=== PATIENT | female | born 1955 | race Caucasian/White ===

== ENCOUNTER 2017-05-04 13:26 | Inpatient (IN) | payer OTHER ==
[~2017-05-04] VITALS: Ht 182.9 cm; Wt 178.9 kg
[~2017-05-04 13:26] MED LIST: AMLO10TA2 PO; BUPR150T11; CYCL10TA2 PO; DOCU-109 PO; GABA-585 PO; HYDR-2758 PO; HYDR-971 PO; LISI1TAB7; LISI1TAB7 PO; METH4TAB PO; PRED20TA PO; SERT50TA8
[2017-05-04] MEDS ORDERED: IV NORMAL SALINE 1000ML BAG 1,000 ML IV SCH (14:51)
[2017-05-04] MEDS ORDERED: ASPIRIN CHEWABLE 81 MG TABLET. PO ONE (15:00)
[2017-05-04 15:04] LABS: BASO # 0.1 x10^3/uL (0.0-0.2); BASO % 1 % (0-3); EOS % 4 % (0-3); HEMATOCRIT 43.3 % (36.0-47.0); HEMOGLOBIN 14.3 g/dL (12.0-15.5); LYMPH % 21 % (24-48); MEAN CORPUSCULAR HEMOGLOBIN 32 pg (25-35); MEAN CORPUSCULAR HGB CONC 33 g/dL (31-37); MEAN CORPUSCULAR VOLUME 97 fL (79-100); MONO % 5 % (0-9); NEUT % 69 % (31-73); PLATELET COUNT 229 x10^3/uL (140-400); RED BLOOD COUNT 4.48 x10^6/uL (3.50-5.40); RED CELL DISTRIBUTION WIDTH 13.1 % (11.5-14.5); WHITE BLOOD COUNT 9.3 x10^3/uL (4.0-11.0)
--- NOTE | 2017-05-04 15:04 | EKG ---
[facility] [address] [place] [address] Test Date: 2017-05-04 Test Time: 13:36:22 Pat Name: TYRELL SPANGLER Department: Room: Gender: F Healthcare Corporate Account Director: DEEJAY : 1955 Requested By: JOSIAS REYES Order Number: [id number] Reading MD: Bryan Heath Measurements Intervals [place] Rate: 74 P: 6 [place]: 140 QRS: -172 QRSD: 96 T: 141 QT: 418 QTc: 470 Interpretive Statements SINUS RHYTHM VENTRICULAR PREMATURE COMPLEX(ES) ATRIAL PREMATURE COMPLEX(ES) ABNORMAL RIGHT SUPERIOR AXIS DEVIATION QRS(T) CONTOUR ABNORMALITY CONSISTENT WITH HIGH LATERAL INFARCT AGE UNDETERMINED ABNORMAL ECG RI6.01 No previous ECG available for comparison Electronically Signed On 05-04-2017 17:55:34 MACHINIST MECHANIC by Bryan Heath
[2017-05-04 15:14] LABS: BILIRUBIN,URINE NEGATIVE (NEG); GLUCOSE,URINE NEGATIVE (NEG); NITRITE,URINE NEGATIVE (NEG); PROTEIN,URINE NEGATIVE (NEG-TRACE)
[2017-05-04 15:15] LABS: CALCIUM 8.5 mg/dL (8.5-10.1); CREATININE 0.8 mg/dL (0.6-1.0); GFR 73.4; POTASSIUM 3.5 mmol/L (3.5-5.1)
[2017-05-04 15:21] LABS: ALBUMIN 3.6 g/dL (3.4-5.0); ALBUMIN/GLOBULIN RATIO 0.9 (1.0-1.7); TOTAL BILIRUBIN 0.3 mg/dL (0.2-1.0); TOTAL PROTEIN 7.7 g/dL (6.4-8.2)
[2017-05-04 15:29] LABS: BACTERIA,URINE MODERATE /HPF (0-FEW); RBC,URINE 0 /HPF (0-2); SQUAMOUS EPITHELIAL CELL,UR MOD /LPF; WBC,URINE OCC /HPF (0-4)
--- NOTE | 2017-05-04 15:33 | RAD ---
Portable chest, 05/04/2017: History: Chest pain, dizziness Comparison is made to a study from 09/22/2011. The heart size and pulmonary vascularity are within normal limits. There are prominent epicardial fat pads. No acute infiltrate is seen. There is no evidence of pleural fluid. IMPRESSION: No acute cardiopulmonary abnormality is detected.
[2017-05-04] MEDS: IV NORMAL SALINE 1000ML BAG 1,000 ML IV SCH (16:00)
[2017-05-04] MEDS ORDERED: fentaNYL PF VIAL 100 MCG/2 ML VIAL IV PRN (16:00)
[2017-05-04] MEDS ORDERED: ACETAMINOPHEN 325 MG TABLET. PO PRN (16:00)
[2017-05-04] MEDS ORDERED: ONDANSETRON PF 4 MG/2 ML VIAL. IV PRN (16:00)
--- NOTE | 2017-05-04 16:05 | RAD ---
CT of the head without contrast, 05/04/2017: History: Dizziness, hypertension The ventricles are within normal limits in size. There is no shift of the midline structures. There is no evidence of acute intracranial hemorrhage or mass effect. IMPRESSION: No acute intracranial abnormality is detected. PQRS Compliance Statement: One or more of the following individualized dose reduction techniques were utilized for this examination: 1. Automated exposure control 2. Adjustment of the mA and/or kV according to patient size 3. Use of iterative reconstruction technique
--- NOTE | 2017-05-04 16:22 | PHYS DOC ---
Past Medical History Past Medical History: COPD, Depression, Hypertension, Sciatica Past Surgical History: Hysterectomy, Tonsillectomy, Other Additional Past Surgical Histo: (r) arm repair, L knee, back, lasik Alcohol Use: None Drug Use: None Adult General Chief Complaint Chief Complaint: DIZZY/LIGHT HEADED HPI HPI Patient is a 61 year old female who presents with complaint of dizziness. The patient states that she has been having symptoms over the past week. Patient states that she has not noticed any triggers for her dizzy spells. The patient describes the spells as feeling like she is going to fall back and passed out. Patient states that she also has noticed pain to the left side of her chest and jaw. Patient states that these episodes last about 30 minutes and resolve spontaneously. Patient does admit to associated shortness of breath and diaphoresis with these episodes. Patient has history of hypertension and family history of coronary artery disease. Patient also has long-standing history of tobacco use. Patient denies any history of abnormal cardiac workups. Patient states that she has had a stress test but states that it is been more than 2 years ago. The patient states that she is concerned with the symptoms as they seem to be happening without warning and came to the emergency department for evaluation. Review of Systems Review of Systems Constitutional: Diaphoresis, denies fever or chills [] Eyes: Denies change in visual acuity, redness, or eye pain [] HENT: Denies nasal congestion or sore throat [] Respiratory: Shortness of breath[] Cardiovascular: Chest pain, near-syncope[] GI: Denies abdominal pain, nausea, vomiting, bloody stools or diarrhea [] : Denies dysuria or hematuria [] Musculoskeletal: Denies back pain or joint pain [] Integument: Denies rash or skin lesions [] Neurologic: Denies headache, focal weakness or sensory changes [] All other systems were reviewed and found to be within normal limits, except as documented in this note. Current Medications Current Medications Current Medications Medications (Trade) Dose Ordered Sig/Alfredo Start Time Stop Time Status Last Admin Dose Admin Acetaminophen (Tylenol) 650 mg PRN Q4HRS PRN 05/04/17 16:00 05/05/17 15:59 Aspirin (Children'S Aspirin) 324 mg 1X ONCE 05/04/17 15:00 05/04/17 15:01 DC 05/04/17 15:08 324 MG Fentanyl Citrate (Fentanyl 2ml Vial) 50 mcg PRN Q2HR PRN 05/04/17 16:00 05/05/17 15:59 Ondansetron HCl (Zofran) 4 mg PRN Q8HRS PRN 05/04/17 16:00 05/05/17 15:59 Sodium Chloride 1,000 ml @ 125 mls/hr Q8H 05/04/17 16:00 05/05/17 15:59 Allergies Allergies Allergies Coded Allergies Type Severity Reaction Last Updated Verified No Known Drug Allergies 09/30/14 No Physical Exam Physical Exam Constitutional: Alert, obese, afebrile, vital signs stable. [] HENT: Normocephalic, atraumatic, bilateral external ears normal, oropharynx moist, no oral exudates, nose normal. [] Eyes: PERRLA, EOMI, conjunctiva normal, no discharge. [] Neck: Normal range of motion, no tenderness, supple, no stridor. [] Cardiovascular:Heart rate regular rhythm, no murmur [] Lungs & Thorax: Bilateral breath sounds clear to auscultation [] Abdomen: Bowel sounds normal, soft, no tenderness, no masses, no pulsatile masses. [] Skin: Warm, dry, no erythema, no rash. [] Back: No tenderness, no CVA tenderness. [] Extremities: No tenderness, no cyanosis, no clubbing, ROM intact, no edema. [] Neurologic: Alert and oriented X 3, normal motor function, normal sensory function, no focal deficits noted. [] Current Patient Data Vital Signs Vital Signs Date Time Temp Pulse Resp B/P (MAP) Pulse Ox O2 Delivery O2 Flow Rate FiO2 05/04/17 13:27 98.7 73 22 183/96 (125) 96 Room Air 98.7 Lab Values Laboratory Tests Test 05/04/17 13:12 05/04/17 15:00 White Blood Count 9.3 x10^3/uL (4.0-11.0) Red Blood Count 4.48 x10^6/uL (3.50-5.40) Hemoglobin 14.3 g/dL (12.0-15.5) Hematocrit 43.3 % (36.0-47.0) Mean Corpuscular Volume 97 fL (79-100) Mean Corpuscular Hemoglobin 32 pg (25-35) Mean Corpuscular Hemoglobin Concent 33 g/dL (31-37) Red Cell Distribution Width 13.1 % (11.5-14.5) Platelet Count 229 x10^3/uL (140-400) Neutrophils (%) (Auto) 69 % (31-73) Lymphocytes (%) (Auto) 21 % (24-48) L Monocytes (%) (Auto) 5 % (0-9) Eosinophils (%) (Auto) 4 % (0-3) H Basophils (%) (Auto) 1 % (0-3) Neutrophils # (Auto) 6.5 x10^3uL (1.8-7.7) Lymphocytes # (Auto) 2.0 x10^3/uL (1.0-4.8) Monocytes # (Auto) 0.5 x10^3/uL (0.0-1.1) Eosinophils # (Auto) 0.3 x10^3/uL (0.0-0.7) Basophils # (Auto) 0.1 x10^3/uL (0.0-0.2) Sodium Level 137 mmol/L (136-145) Potassium Level 3.5 mmol/L (3.5-5.1) Chloride Level 103 mmol/L (98-107) Carbon Dioxide Level 26 mmol/L (21-32) Anion Gap 8 (6-14) Blood Urea Nitrogen 14 mg/dL (7-20) Creatinine 0.8 mg/dL (0.6-1.0) Estimated GFR (Cockcroft-Gault) 73.4 BUN/Creatinine Ratio 18 (6-20) Glucose Level 156 mg/dL (70-99) H Calcium Level 8.5 mg/dL (8.5-10.1) Magnesium Level 2.0 mg/dL (1.8-2.4) Total Bilirubin 0.3 mg/dL (0.2-1.0) Aspartate Amino Transferase (AST) 16 U/L (15-37) Alanine Aminotransferase (ALT) 19 U/L (14-59) Alkaline Phosphatase 69 U/L (46-116) Creatine Kinase 124 U/L (26-192) Creatine Kinase MB (Mass) 2.0 ng/mL (0.0-3.6) Creatine Kinase MB Relative Index 1.6 % (0-4) Troponin I Quantitative < 0.017 ng/mL (0.000-0.055) KK-Ixa-C-Type Natriuretic Peptide 131 pg/mL (0-124) H Total Protein 7.7 g/dL (6.4-8.2) Albumin 3.6 g/dL (3.4-5.0) Albumin/Globulin Ratio 0.9 (1.0-1.7) L Urine Collection Type Unknown Urine Color Yellow Urine Clarity Cloudy Urine pH 6.0 Urine Specific [place] 1.015 Urine Protein Negative mg/dL (NEG-TRACE) Urine Glucose (UA) Negative mg/dL (NEG) Urine Ketones (Stick) Negative mg/dL (NEG) Urine Blood Negative (NEG) Urine Nitrite Negative (NEG) Urine Bilirubin Negative (NEG) Urine Urobilinogen Dipstick 1.0 mg/dL (0.2 mg/dL) Urine Leukocyte Esterase Negative (NEG) Urine RBC 0 /HPF (0-2) Urine WBC Occ /HPF (0-4) Urine Squamous Epithelial Cells Mod /LPF Urine Bacteria Moderate /HPF (0-FEW) Urine Mucus Slight /LPF Laboratory Tests 05/04/17 13:12 Laboratory Tests 05/04/17 13:12 EKG EKG Interpreted by me: Heart rate 74, sinus rhythm, occasional PVCs, no acute ST/T- wave abnormalities present[] Radiology/Procedures Radiology/Procedures [facility] [address] [place] [address] IMAGING REPORT Signed PATIENT: TYRELL SPANGLER ACCOUNT: [id number] : 1955 LOCATION: ER AGE: 61 SEX: F EXAM STATUS: REG ER ORD. PHYSICIAN: JOSIAS REYES MD REASON: dizziness, chest pain PROCEDURE: PORTABLE CHEST 1V Portable chest, 05/04/2017: History: Chest pain, dizziness Comparison is made to a study from 09/22/2011. The heart size and pulmonary vascularity are within normal limits. There are prominent epicardial fat pads. No acute infiltrate is seen. There is no evidence of pleural fluid. IMPRESSION: No acute cardiopulmonary abnormality is detected. DICTATED and SIGNED BY: RADHA ARIZMENDI MD DATE: 05/04/17 1527 CC: JOSIAS REYES MD; RAMÓN DOMINGUEZ Jr, MD ~ [facility] [address] [place] [address] IMAGING REPORT Signed PATIENT: TYRELL SPANGLER ACCOUNT: [id number] : 1955 LOCATION: ER AGE: 61 SEX: F EXAM STATUS: REG ER ORD. PHYSICIAN: JOSIAS REYES MD REASON: dizziness for 6 days PROCEDURE: CT HEAD WO CONTRAST CT of the head without contrast, 05/04/2017: History: Dizziness, hypertension The ventricles are within normal limits in size. There is no shift of the midline structures. There is no evidence of acute intracranial hemorrhage or mass effect. IMPRESSION: No acute intracranial abnormality is detected. [facility] Compliance Statement: One or more of the following individualized dose reduction techniques were utilized for this examination: 1. Automated exposure control 2. Adjustment of the mA and/or kV according to patient size 3. Use of iterative reconstruction technique DICTATED and SIGNED BY: RADHA ARIZMENDI MD DATE: 05/04/171558 CC: JOSIAS REYES MD; RAMÓN DOMINGUEZ Jr, MD ~ [] Course & Med Decision Making Course & Med Decision Making Pertinent Labs and Imaging studies reviewed. (See chart for details) The patient's HEART score is 6. Patient's initial troponin negative. The patient has a concerning story for acute coronary syndrome. The patient will require admission to the hospital for full evaluation and rule out of myocardial infarction. I spoke with Dr. Sam who accepted care of patient in hospital. A consult was placed to Dr. Marlow of cardiology follow patient in hospital. Dragon Disclaimer Dragon Disclaimer This electronic medical record was generated, in whole or in part, using a voice recognition dictation system. Departure Departure Impression: Primary Impression: Acute coronary syndrome Additional Impressions: Essential hypertension Family history of coronary artery disease Tobacco use Disposition: ADMITTED INPATIENT Admitting Physician: Evon Sam Condition: STABLE Referrals: RAMÓN DOMINGUEZ Jr, MD (PCP) Problem Qualifiers JOSIAS REYES MD May 04, 2017 16:22
--- NOTE | 2017-05-04 18:21 | PDOC1 ---
History and Physical Date of Admission Date of Admission DATE: 05/04/17 TIME: 18:17 Identification/Chief Complaint Chief Complaint jaw pain, presyncopal sensations Problems: Source Source: Chart review, Patient History of Present Illness History of Present Illness Ms. Peck, is a 61 year old female who presents with complaint of dizziness with intermittent symptoms over the past week. Patient states that she has not noticed any triggers for her dizzy spells. episodes for 30 minutes at times for the past week. She is often at work, seated, working on the computer, and then feels suddenly dizzy, and like some force is pulling her back by her head. Then today, she felt like she was going to fall back and passed out. She then had jaw pain and neck pain bilaterally. Cardiac stress test done 4 or more years ago here. Past Medical History Cardiovascular: HTN Heme/Onc: No pertinent hx Hepatobiliary: No pertinent hx Psych: Anxiety, Addictions Rheumatologic: No pertinent hx Infectious disease: No pertinent hx Endocrine: Other (obese) Dermatology: No pertinent hx Family History Family History: Coronary Artery Disease Family History: Parent Social History Smoke: <1 pack per day ALCOHOL: none Drugs: None Current Problem List Problem List Problems Medical Problems: (1) Essential hypertension Status: Acute (2) Tobacco use Status: Acute Problems: Current Medications Current Medications Current Medications Aspirin (Children'S Aspirin) 324 mg 1X ONCE PO Last administered on 15:08; Start 05/04/17 at 15:00; Stop 05/04/17 at 15:01; Status DC Sodium Chloride 1,000 ml @ 125 mls/hr Q8H IV Last administered on 05/04/17 15:07; Start 05/04/17 at 14:51; Stop 05/04/17 at 22:50 Ondansetron HCl (Zofran) 4 mg PRN Q8HRS PRN IV NAUSEA/VOMITING; Start at 16:00; Stop 05/05/17 at 15:59 Fentanyl Citrate (Fentanyl 2ml Vial) 50 mcg PRN Q2HR PRN IV PAIN; Start at 16:00; Stop 05/05/17 at 15:59 Sodium Chloride 1,000 ml @ 125 mls/hr Q8H IV ; Start 05/04/17 at 16:00; Stop 05/05/17 at 15:59 Acetaminophen (Tylenol) 650 mg PRN Q4HRS PRN PO FEVER; Start 05/04/17 at 16:00 ; Stop 05/05/17 at 15:59 Active Scripts Active Medrol (Methylprednisolone) 4 Mg Tablet 4 Tab PO UD see package instructions Lisinopril-Hctz 20-25 Mg Tab (Lisinopril/Hydrochlorothiazide) 1 Each Tablet 1 Tab PO DAILY Colace (Docusate Sodium) 100 Mg Capsule 100 Mg PO BID Hydrocodone-Apap 5-325 (Hydrocodone Bit/Acetaminophen) 1 Each Tablet 1-2 Tab PO PRN Q4HRS PRN Gabapentin 100 Mg Capsule 100 Mg PO TID Amlodipine Besylate 10 Mg Tablet 10 Mg PO DAILY Prednisone 20 Mg Tablet 40 Mg PO DAILY Cyclobenzaprine Hcl 10 Mg Tablet 1 Tab PO TID Reported Sertraline Hcl 50 Mg Tablet Bupropion Hcl Sr (Bupropion Hcl) 150 Mg Tablet.er 30 Days Allergies Allergies: Coded Allergies: No Known Drug Allergies (Unverified , 09/30/14) ROS General: YES: Fatigue, No: Chills, Night Sweats, Malaise, Appetite, Other PSYCHOLOGICAL ROS: YES: Sleep disturbances, No: Anxiety, Behavioral Disorder, Concentration difficultie, Decreased libido , Depression, Disorientation, Hallucinations, Hostility, Irritablity, Memory difficulties, Mood Swings, Obsessive thoughts, Other Eyes: No Blurry vision, No Decreased vision, No Double vision, No Dry eyes, No Excessive tearing, No Eye Pain, No Itchy Eyes, No Loss of vision, No Photophobia , No Scotomata, No Uses contacts, No Uses glasses, No Other HEENT: No: Heacaches, Visual Changes, Hearing change, Nasal congestion, Nasal discharge, Oral lesions, Sinus pain, Sore Throat, Epistaxis, Sneezing, Snoring, Tinnitus, Vertigo, Vocal changes, Other Respiratory: No: Cough, Hemoptysis, Orthopnea, Pleuritic Pain, Shortness of breath, SOB with excertion, Sputum Changes, Stridor, Tachypnea, Wheezing, Other Gastrointestinal: No Nausea, No Vomiting, No Abdominal Pain, No Diarrhea, No Constipation, No Melena, No Hematochezia, No Other Genitourinary: No Dysuria, No Frequency, No Incontinence, No Hematuria, No Retention, No Discharge, No Urgency, No Pain, No Flank Pain, No Other, No , No , No , No , No , No , No Musculoskeletal: Yes Joint Pain, Yes Joint Stiffness, No Gait Disturbance, No Joint Swelling, No Muscle Pain, No Muscular Weakness , No Pain In:, No Swelling In:, No Other Neurological: No Behavorial Changes, No Bowel/Bladder ControlChng, No Confusion , No Dizziness, No Gait Disturbance, No Headaches, No Impaired Coord/balance, No Memory Loss, No Numbness/Tingling, No Seizures, No Speech Problems, No Tremors, No Visual Changes, No Weakness, No Other Skin: No Dry Skin, No Eczema, No Hair Changes, No Lumps, No Mole Changes, No Mottling, No Nail Changes, No Pruritus, No Rash, No Skin Lesion Changes, No Other, No Acne Physical Exam General: Alert, Cooperative, mild distress HEENT: PERRLA, EOMI, Mucous membr. moist/pink Heart: S1S2, RRR, no gallops, no murmurs Abdomen: Normal bowel sounds, Soft (obese) Rectal Exam: not examined Extremities: No edema, Normal pulses, Other (right ankle in brace for foot drop ) Neuro: Normal gait, Normal speech, Sensation intact Psych/Mental Status: Mental status NL, Mood NL Vitals Vitals Vital Signs Date Time Temp Pulse Resp B/P (MAP) Pulse Ox O2 Delivery O2 Flow Rate FiO2 05/04/17 13:27 98.7 73 22 183/96 (125) 96 Room Air 98.7 Labs Labs Laboratory Tests Test 05/04/17 13:12 05/04/17 15:00 White Blood Count 9.3 x10^3/uL (4.0-11.0) Red Blood Count 4.48 x10^6/uL (3.50-5.40) Hemoglobin 14.3 g/dL (12.0-15.5) Hematocrit 43.3 % (36.0-47.0) Mean Corpuscular Volume 97 fL (79-100) Mean Corpuscular Hemoglobin 32 pg (25-35) Mean Corpuscular Hemoglobin Concent 33 g/dL (31-37) Red Cell Distribution Width 13.1 % (11.5-14.5) Platelet Count 229 x10^3/uL (140-400) Neutrophils (%) (Auto) 69 % (31-73) Lymphocytes (%) (Auto) 21 % (24-48) Monocytes (%) (Auto) 5 % (0-9) Eosinophils (%) (Auto) 4 % (0-3) Basophils (%) (Auto) 1 % (0-3) Neutrophils # (Auto) 6.5 x10^3uL (1.8-7.7) Lymphocytes # (Auto) 2.0 x10^3/uL (1.0-4.8) Monocytes # (Auto) 0.5 x10^3/uL (0.0-1.1) Eosinophils # (Auto) 0.3 x10^3/uL (0.0-0.7) Basophils # (Auto) 0.1 x10^3/uL (0.0-0.2) Sodium Level 137 mmol/L (136-145) Potassium Level 3.5 mmol/L (3.5-5.1) Chloride Level 103 mmol/L (98-107) Carbon Dioxide Level 26 mmol/L (21-32) Anion Gap 8 (6-14) Blood Urea Nitrogen 14 mg/dL (7-20) Creatinine 0.8 mg/dL (0.6-1.0) Estimated GFR (Cockcroft-Gault) 73.4 BUN/Creatinine Ratio 18 (6-20) Glucose Level 156 mg/dL (70-99) Calcium Level 8.5 mg/dL (8.5-10.1) Magnesium Level 2.0 mg/dL (1.8-2.4) Total Bilirubin 0.3 mg/dL (0.2-1.0) Aspartate Amino Transf (AST/SGOT) 16 U/L (15-37) Alanine Aminotransferase (ALT/SGPT) 19 U/L (14-59) Alkaline Phosphatase 69 U/L (46-116) Creatine Kinase 124 U/L (26-192) Creatine Kinase MB (Mass) 2.0 ng/mL (0.0-3.6) Creatine Kinase MB Relative Index 1.6 % (0-4) Troponin I Quantitative < 0.017 ng/mL (0.000-0.055) TT-Clw-N-Type Natriuretic Peptide 131 pg/mL (0-124) Total Protein 7.7 g/dL (6.4-8.2) Albumin 3.6 g/dL (3.4-5.0) Albumin/Globulin Ratio 0.9 (1.0-1.7) Urine Collection Type Unknown Urine Color Yellow Urine Clarity Cloudy Urine pH 6.0 Urine Specific [place] 1.015 Urine Protein Negative mg/dL (NEG-TRACE) Urine Glucose (UA) Negative mg/dL (NEG) Urine Ketones (Stick) Negative mg/dL (NEG) Urine Blood Negative (NEG) Urine Nitrite Negative (NEG) Urine Bilirubin Negative (NEG) Urine Urobilinogen Dipstick 1.0 mg/dL (0.2 mg/dL) Urine Leukocyte Esterase Negative (NEG) Urine RBC 0 /HPF (0-2) Urine WBC Occ /HPF (0-4) Urine Squamous Epithelial Cells Mod /LPF Urine Bacteria Moderate /HPF (0-FEW) Urine Mucus Slight /LPF Laboratory Tests Test 05/04/17 13:12 05/04/17 15:00 White Blood Count 9.3 x10^3/uL (4.0-11.0) Red Blood Count 4.48 x10^6/uL (3.50-5.40) Hemoglobin 14.3 g/dL (12.0-15.5) Hematocrit 43.3 % (36.0-47.0) Mean Corpuscular Volume 97 fL (79-100) Mean Corpuscular Hemoglobin 32 pg (25-35) Mean Corpuscular Hemoglobin Concent 33 g/dL (31-37) Red Cell Distribution Width 13.1 % (11.5-14.5) Platelet Count 229 x10^3/uL (140-400) Neutrophils (%) (Auto) 69 % (31-73) Lymphocytes (%) (Auto) 21 % (24-48) Monocytes (%) (Auto) 5 % (0-9) Eosinophils (%) (Auto) 4 % (0-3) Basophils (%) (Auto) 1 % (0-3) Neutrophils # (Auto) 6.5 x10^3uL (1.8-7.7) Lymphocytes # (Auto) 2.0 x10^3/uL (1.0-4.8) Monocytes # (Auto) 0.5 x10^3/uL (0.0-1.1) Eosinophils # (Auto) 0.3 x10^3/uL (0.0-0.7) Basophils # (Auto) 0.1 x10^3/uL (0.0-0.2) Sodium Level 137 mmol/L (136-145) Potassium Level 3.5 mmol/L (3.5-5.1) Chloride Level 103 mmol/L (98-107) Carbon Dioxide Level 26 mmol/L (21-32) Anion Gap 8 (6-14) Blood Urea Nitrogen 14 mg/dL (7-20) Creatinine 0.8 mg/dL (0.6-1.0) Estimated GFR (Cockcroft-Gault) 73.4 BUN/Creatinine Ratio 18 (6-20) Glucose Level 156 mg/dL (70-99) Calcium Level 8.5 mg/dL (8.5-10.1) Magnesium Level 2.0 mg/dL (1.8-2.4) Total Bilirubin 0.3 mg/dL (0.2-1.0) Aspartate Amino Transf (AST/SGOT) 16 U/L (15-37) Alanine Aminotransferase (ALT/SGPT) 19 U/L (14-59) Alkaline Phosphatase 69 U/L (46-116) Creatine Kinase 124 U/L (26-192) Creatine Kinase MB (Mass) 2.0 ng/mL (0.0-3.6) Creatine Kinase MB Relative Index 1.6 % (0-4) Troponin I Quantitative < 0.017 ng/mL (0.000-0.055) TQ-Ovc-C-Type Natriuretic Peptide 131 pg/mL (0-124) Total Protein 7.7 g/dL (6.4-8.2) Albumin 3.6 g/dL (3.4-5.0) Albumin/Globulin Ratio 0.9 (1.0-1.7) Urine Collection Type Unknown Urine Color Yellow Urine Clarity Cloudy Urine pH 6.0 Urine Specific [place] 1.015 Urine Protein Negative mg/dL (NEG-TRACE) Urine Glucose (UA) Negative mg/dL (NEG) Urine Ketones (Stick) Negative mg/dL (NEG) Urine Blood Negative (NEG) Urine Nitrite Negative (NEG) Urine Bilirubin Negative (NEG) Urine Urobilinogen Dipstick 1.0 mg/dL (0.2 mg/dL) Urine Leukocyte Esterase Negative (NEG) Urine RBC 0 /HPF (0-2) Urine WBC Occ /HPF (0-4) Urine Squamous Epithelial Cells Mod /LPF Urine Bacteria Moderate /HPF (0-FEW) Urine Mucus Slight /LPF VTE Prophylaxis Ordered VTE Prophylaxis Devices: No VTE Pharmacological Prophylaxi: Yes Assessment/Plan Assessment/Plan presyncope with chest pain, possible angina morbid obesity, BMI 53 tobaccoism right ankle weakness and poor mobility after achilles injury CHACORTA PAPPAS MD May 04, 2017 18:21
[2017-05-04] MEDS ORDERED: HYDROcodone/APAP 5/325MG 1 TAB TABLET PO PRN (18:30)
[2017-05-04] MEDS ORDERED: ALBUTEROL SULFATE 2.5 MG/3 ML NEBU. NEB PRN (18:30)
[2017-05-04 18:50] VITALS: BP 155/78
[2017-05-04] MEDS: IPRATRPIUM/ALBUTEROL 0.5/2.5MG 3 ML NEBU. NEB SCH (19:45)
[2017-05-04] MEDS: BUDESONIDE 0.5 MG/2 ML NEBU. NEB SCH (19:45)
[2017-05-04] MEDS ORDERED: CYCLOBENZAPRINE 10 MG TABLET. PO SCH (21:00)
[2017-05-04] MEDS ORDERED: GABAPENTIN 100 MG CAPSULE. PO SCH (21:00)
[2017-05-04] MEDS ORDERED: DOCUSATE SODIUM 100 MG CAPSULE. PO SCH (21:00)
[2017-05-04] MEDS: buPROPion SR 150 MG TABLET.SA PO SCH (21:27)
[2017-05-04 23:00] VITALS: BP 138/45
[2017-05-05 03:25] VITALS: BP 125/51
[2017-05-05 06:19] LABS: BASO # 0.1 x10^3/uL (0.0-0.2); BASO % 1 % (0-3); EOS % 4 % (0-3); HEMATOCRIT 39.4 % (36.0-47.0); HEMOGLOBIN 13.1 g/dL (12.0-15.5); LYMPH # 1.7 x10^3/uL (1.0-4.8); LYMPH % 20 % (24-48); MEAN CORPUSCULAR HEMOGLOBIN 32 pg (25-35); MEAN CORPUSCULAR HGB CONC 33 g/dL (31-37); MEAN CORPUSCULAR VOLUME 96 fL (79-100); MONO % 7 % (0-9); NEUT % 68 % (31-73); PLATELET COUNT 188 x10^3/uL (140-400); RED CELL DISTRIBUTION WIDTH 13.5 % (11.5-14.5); WHITE BLOOD COUNT 8.3 x10^3/uL (4.0-11.0)
[2017-05-05 06:58] LABS: CALCIUM 8.6 mg/dL (8.5-10.1); CREATININE 0.8 mg/dL (0.6-1.0); GFR 73.4; POTASSIUM 4.3 mmol/L (3.5-5.1)
[2017-05-05 06:59] LABS: CHOLESTEROL/HDL RATIO 5.1
[2017-05-05 07:00] VITALS: BP 151/74
[2017-05-05] MEDS: IPRATRPIUM/ALBUTEROL 0.5/2.5MG 3 ML NEBU. NEB SCH ×4 (07:17→19:55)
[2017-05-05] MEDS: BUDESONIDE 0.5 MG/2 ML NEBU. NEB SCH ×2 (07:18→19:55)
[2017-05-05] MEDS: IV NORMAL SALINE 1000ML BAG 1,000 ML IV SCH ×2 (08:00)
--- NOTE | 2017-05-05 08:28 | RAD ---
DOPPLER CAROTID BILAT Clinical Indication: dizzy, presyncope,. Procedure: Pulsed wave and color-flow duplex imaging was utilized to evaluate the extracranial carotid arteries. Comparison: None. Findings: RIGHT SIDE: Mild atherosclerotic plaque on fernandez-scale images. Distal CCA peak systolic velocity 81 cm/sec. ICA peak systolic velocity 51 cm/sec. The right ICA/CCA ratio is 0.6. Flow within the right vertebral artery and right ECA is directed antegrade. LEFT SIDE: Mild atherosclerotic plaque on fernandez-scale images. Distal CCA peak systolic velocity 67 cm/sec. ICA peak systolic velocity 66 cm/sec. The left ICA/CCA ratio is 1.0. Flow within the left vertebral artery and left ECA is directed antegrade. Carotid legend: CCA = common carotid artery ICA = internal carotid artery ECA = external carotid artery IMPRESSION: Normal peak velocity in the bilateral ICA suggesting no hemodynamically significant stenosis.
[2017-05-05 11:00] VITALS: BP 147/70
--- NOTE | 2017-05-05 11:10 | PDOC2 ---
WALLY CHACKO BLOWER ROOM ATTENDANT 05/05/17 1110: CARDIAC CONSULT DATE OF CONSULT Date of Consult DATE: 05/05/17 TIME: 10:39 REASON FOR CONSULT Reason for Consult: Chest pain REFERRING PHYSICIAN Referring Physician: Javed SOURCE Source: Chart review, Patient HISTORY OF PRESENT ILLNESS HISTORY OF PRESENT ILLNESS This is a pleasant 61 yo female admitted for complains of jaw and neck tightness and dizziness. Reports that this has been going on in the last week. Positive for diaphoresis, palpitations. She gets this dizzy spells quite frequently now but no passing out or related injuries. Her dizziness occurs even with no palpitations. Reports no nausea but notable for PECK. No wheezing and remains to continue with tobaccoism and no med coverage for her COPD. Positive for JESSICA with CPAP use. Reports no past CAD with stress test last was 5 yrs ago. No VTE, syncope, or hx of arrhythmias. No PND or orthopnea. She does use 3 tabs of aleve daily for her chronic low back pain but denies any abd pain or heartburn. PAST MEDICAL HISTORY Cardiovascular: HTN Pulmonary: COPD, Other CENTRAL NERVOUS SYSTEM: Other (No pertinent history) GI: No pertinent hx Heme/Onc: No pertinent hx Hepatobiliary: No pertinent hx Psych: Anxiety, Depression Musculoskeletal: low back pain, Osteoarthritis, Other (lumbar radiculopathy) Rheumatologic: No pertinent hx Infectious disease: No pertinent hx ENT: No pertinent hx Renal/: Urinary Incontinence Endocrine: No pertinent hx Dermatology: No pertinent hx PAST SURGICAL HISTORY Past Surgical History: Tonsillectomy, Hysterectomy SOCIAL HISTORY Smoke: <1 pack per day ALCOHOL: none Drugs: None Lives: with Family CURRENT MEDICATIONS CURRENT MEDICATIONS Current Medications Medications (Trade) Dose Ordered Sig/Alfredo Route PRN Reason Start Time Stop Time Status Last Admin Dose Admin Aspirin (Children'S Aspirin) 324 mg 1X ONCE PO 05/04/17 15:00 05/04/17 15:01 DC 05/04/17 15:08 Sodium Chloride 1,000 ml @ 125 mls/hr Q8H IV 05/04/17 14:51 05/04/17 22:50 DC 05/04/17 15:07 Bupropion HCl (Wellbutrin Sr) 150 mg BID PO 05/04/17 21:00 05/04/17 21:27 Albuterol/ Ipratropium (Duoneb) 3 ml RTQID NEB 05/04/17 20:00 05/05/17 07:17 Budesonide (Pulmicort) 0.5 mg RTBID [facility] 05/04/17 20:00 05/05/17 07:18 ALLERGIES ALLERGIES: Coded Allergies: No Known Drug Allergies (Unverified , 09/30/14) ROS Review of System 14 point ROS evaluated with pertinent positives noted per HPI PHYSICAL EXAM General: Alert, Oriented X3, Cooperative, No acute distress HEENT: Atraumatic, Mucous membr. moist/pink Lungs: Clear to auscultation, Normal air movement Heart: Regular rate (SR), Other (distant heart sounds) Abdomen: Soft, Other (obese) Skin: No breakdown, No significant lesion Neuro: Normal speech, Sensation intact Psych/Mental Status: Mental status NL, Mood NL MUSCULOSKELETAL: Osteoarthritic changes both hands VITALS VITALS Vital Signs Date Time Temp Pulse Resp B/P (MAP) Pulse Ox O2 Delivery O2 Flow Rate FiO2 05/05/17 07:22 96 Room Air 05/05/17 07:00 98.2 69 20 151/74 (99) 98.2 LABS Lab: Laboratory Tests Test 05/04/17 13:12 05/04/17 15:00 05/04/17 21:45 05/05/17 05:00 White Blood Count 9.3 x10^3/uL (4.0-11.0) 8.3 x10^3/uL (4.0-11.0) Red Blood Count 4.48 x10^6/uL (3.50-5.40) 4.10 x10^6/uL (3.50-5.40) Hemoglobin 14.3 g/dL (12.0-15.5) 13.1 g/dL (12.0-15.5) Hematocrit 43.3 % (36.0-47.0) 39.4 % (36.0-47.0) Mean Corpuscular Volume 97 fL (79-100) 96 fL (79-100) Mean Corpuscular Hemoglobin 32 pg (25-35) 32 pg (25-35) Mean Corpuscular Hemoglobin Concent 33 g/dL (31-37) 33 g/dL (31-37) Red Cell Distribution Width 13.1 % (11.5-14.5) 13.5 % (11.5-14.5) Platelet Count 229 x10^3/uL (140-400) 188 x10^3/uL (140-400) Neutrophils (%) (Auto) 69 % (31-73) 68 % (31-73) Lymphocytes (%) (Auto) 21 % (24-48) 20 % (24-48) Monocytes (%) (Auto) 5 % (0-9) 7 % (0-9) Eosinophils (%) (Auto) 4 % (0-3) 4 % (0-3) Basophils (%) (Auto) 1 % (0-3) 1 % (0-3) Neutrophils # (Auto) 6.5 x10^3uL (1.8-7.7) 5.7 x10^3uL (1.8-7.7) Lymphocytes # (Auto) 2.0 x10^3/uL (1.0-4.8) 1.7 x10^3/uL (1.0-4.8) Monocytes # (Auto) 0.5 x10^3/uL (0.0-1.1) 0.6 x10^3/uL (0.0-1.1) Eosinophils # (Auto) 0.3 x10^3/uL (0.0-0.7) 0.3 x10^3/uL (0.0-0.7) Basophils # (Auto) 0.1 x10^3/uL (0.0-0.2) 0.1 x10^3/uL (0.0-0.2) Sodium Level 137 mmol/L (136-145) 143 mmol/L (136-145) Potassium Level 3.5 mmol/L (3.5-5.1) 4.3 mmol/L (3.5-5.1) Chloride Level 103 mmol/L (98-107) 108 mmol/L (98-107) Carbon Dioxide Level 26 mmol/L (21-32) 29 mmol/L (21-32) Anion Gap 8 (6-14) 6 (6-14) Blood Urea Nitrogen 14 mg/dL (7-20) 13 mg/dL (7-20) Creatinine 0.8 mg/dL (0.6-1.0) 0.8 mg/dL (0.6-1.0) Estimated GFR (Cockcroft-Gault) 73.4 73.4 BUN/Creatinine Ratio 18 (6-20) Glucose Level 156 mg/dL (70-99) 103 mg/dL (70-99) Calcium Level 8.5 mg/dL (8.5-10.1) 8.6 mg/dL (8.5-10.1) Magnesium Level 2.0 mg/dL (1.8-2.4) Total Bilirubin 0.3 mg/dL (0.2-1.0) Aspartate Amino Transf (AST/SGOT) 16 U/L (15-37) Alanine Aminotransferase (ALT/SGPT) 19 U/L (14-59) Alkaline Phosphatase 69 U/L (46-116) Creatine Kinase 124 U/L (26-192) Creatine Kinase MB (Mass) 2.0 ng/mL (0.0-3.6) Creatine Kinase MB Relative Index 1.6 % (0-4) Troponin I Quantitative < 0.017 ng/mL (0.000-0.055) < 0.017 ng/mL (0.000-0.055) < 0.017 ng/mL (0.000-0.055) XM-Gzz-Q-Type Natriuretic Peptide 131 pg/mL (0-124) Total Protein 7.7 g/dL (6.4-8.2) Albumin 3.6 g/dL (3.4-5.0) Albumin/Globulin Ratio 0.9 (1.0-1.7) Urine Collection Type Unknown Urine Color Yellow Urine Clarity Cloudy Urine pH 6.0 Urine Specific [place] 1.015 Urine Protein Negative mg/dL (NEG-TRACE) Urine Glucose (UA) Negative mg/dL (NEG) Urine Ketones (Stick) Negative mg/dL (NEG) Urine Blood Negative (NEG) Urine Nitrite Negative (NEG) Urine Bilirubin Negative (NEG) Urine Urobilinogen Dipstick 1.0 mg/dL (0.2 mg/dL) Urine Leukocyte Esterase Negative (NEG) Urine RBC 0 /HPF (0-2) Urine WBC Occ /HPF (0-4) Urine Squamous Epithelial Cells Mod /LPF Urine Bacteria Moderate /HPF (0-FEW) Urine Mucus Slight /LPF Triglycerides Level 101 mg/dL (0-150) Cholesterol Level 198 mg/dL (0-200) LDL Cholesterol, Calculated 139 mg/dL (0-100) VLDL Cholesterol, Calculated 20 mg/dL (0-40) Non-HDL Cholesterol Calculated 159 mg/dL (0-129) HDL Cholesterol 39 mg/dL (40-60) Cholesterol/HDL Ratio 5.1 ASSESSMENT/PLAN ASSESSMENT/PLAN 1. Jaw pain/dizziness: troponin series normal. EKG SR with PVCs, 2. HTN 3. HLP: new 4. Anxiety 5. JESSICA/COPD: uses CPAP but no COPD coverage 6. Tobaccoism: 20 pk yr Recommendations 1. Discussed with primary cardiology. Await TTE result and will consider for ischemic workup 2. ASA, start on statin. 3. Wt loss, and smoking cessation. 4. Repeat EKG. 5. Resume home BP meds Problems: RICK ALFREDO MD 05/05/17 1443: CARDIAC CONSULT ALLERGIES ALLERGIES: Coded Allergies: No Known Drug Allergies (Unverified , 09/30/14) ASSESSMENT/PLAN ASSESSMENT/PLAN Patient seen and examined. Agree with [employer] [employer]'s assessment and plan. Symptoms atypical for cardiac etiology. Myocardial infarction ruled out. Check 2-D echo to assess LV function and rule out wall motion abnormalities. Further ischemic workup in the form of stress test could be considered as an outpatient. Thank you for your consultation. Problems: WALLY CHACKO APRN May 05, 2017 11:10 RICK ALFREDO MD May 05, 2017 14:43
--- NOTE | 2017-05-05 12:03 | EKG ---
[facility] [address] [place] [address] Test Date: 2017-05-05 Test Time: 12:00:02 Pat Name: TYRELL SPANGLER Department: Room: [facility] Gender: F Card Decorator: MARIELLA : 1955 Requested By: WALLY CHACKO Order Number: [id number] Reading MD: Timoteo Marlow Measurements Intervals [place] Rate: 61 P: 53 AR: 182 QRS: 36 QRSD: 92 T: 48 QT: 446 QTc: 451 Interpretive Statements SINUS RHYTHM NORMAL ECG Electronically Signed On 05-11-2017 14:35:08 [employer] [employer] by Timoteo Marlow
[2017-05-05] MEDS ORDERED: REGADENOSON 0.4 MG/5 ML DISP.SYRIN. IV ONE (12:15)
--- NOTE | 2017-05-05 13:36 | PDOC ---
PROGRESS NOTES Chief Complaint Chief Complaint Dizziness COPD Depression Hypertension Sciatica History of Present Illness History of Present Illness Pt was seen at the bedside. She reports getting a good sleep, has a good appetite, had a bowel movement yesterday, and urinated today. Vitals Vitals Vital Signs Date Time Temp Pulse Resp B/P (MAP) Pulse Ox O2 Delivery O2 Flow Rate FiO2 05/05/17 11:11 96 Room Air 05/05/17 11:00 98.1 72 20 147/70 (95) 98.1 Physical Exam Physical Exam Eyes: sclera anicteric, no conjunctival injection HENT: MMM, no throat erythema General: Alert, Cooperative, No acute distress Heart: Regular rate, Normal S1, Normal S2 Lungs: Clear, Other (no rales, rhonchi, wheezes) Extremities: No clubbing, No cyanosis Labs LABS Laboratory Tests Test 05/04/17 15:00 05/04/17 21:45 05/05/17 05:00 Urine Collection Type Unknown Urine Color Yellow Urine Clarity Cloudy Urine pH 6.0 Urine Specific [place] 1.015 Urine Protein Negative mg/dL (NEG-TRACE) Urine Glucose (UA) Negative mg/dL (NEG) Urine Ketones (Stick) Negative mg/dL (NEG) Urine Blood Negative (NEG) Urine Nitrite Negative (NEG) Urine Bilirubin Negative (NEG) Urine Urobilinogen Dipstick 1.0 mg/dL (0.2 mg/dL) Urine Leukocyte Esterase Negative (NEG) Urine RBC 0 /HPF (0-2) Urine WBC Occ /HPF (0-4) Urine Squamous Epithelial Cells Mod /LPF Urine Bacteria Moderate /HPF (0-FEW) Urine Mucus Slight /LPF Troponin I Quantitative < 0.017 ng/mL (0.000-0.055) < 0.017 ng/mL (0.000-0.055) White Blood Count 8.3 x10^3/uL (4.0-11.0) Red Blood Count 4.10 x10^6/uL (3.50-5.40) Hemoglobin 13.1 g/dL (12.0-15.5) Hematocrit 39.4 % (36.0-47.0) Mean Corpuscular Volume 96 fL (79-100) Mean Corpuscular Hemoglobin 32 pg (25-35) Mean Corpuscular Hemoglobin Concent 33 g/dL (31-37) Red Cell Distribution Width 13.5 % (11.5-14.5) Platelet Count 188 x10^3/uL (140-400) Neutrophils (%) (Auto) 68 % (31-73) Lymphocytes (%) (Auto) 20 % (24-48) Monocytes (%) (Auto) 7 % (0-9) Eosinophils (%) (Auto) 4 % (0-3) Basophils (%) (Auto) 1 % (0-3) Neutrophils # (Auto) 5.7 x10^3uL (1.8-7.7) Lymphocytes # (Auto) 1.7 x10^3/uL (1.0-4.8) Monocytes # (Auto) 0.6 x10^3/uL (0.0-1.1) Eosinophils # (Auto) 0.3 x10^3/uL (0.0-0.7) Basophils # (Auto) 0.1 x10^3/uL (0.0-0.2) Sodium Level 143 mmol/L (136-145) Potassium Level 4.3 mmol/L (3.5-5.1) Chloride Level 108 mmol/L (98-107) Carbon Dioxide Level 29 mmol/L (21-32) Anion Gap 6 (6-14) Blood Urea Nitrogen 13 mg/dL (7-20) Creatinine 0.8 mg/dL (0.6-1.0) Estimated GFR (Cockcroft-Gault) 73.4 Glucose Level 103 mg/dL (70-99) Calcium Level 8.6 mg/dL (8.5-10.1) Triglycerides Level 101 mg/dL (0-150) Cholesterol Level 198 mg/dL (0-200) LDL Cholesterol, Calculated 139 mg/dL (0-100) VLDL Cholesterol, Calculated 20 mg/dL (0-40) Non-HDL Cholesterol Calculated 159 mg/dL (0-129) HDL Cholesterol 39 mg/dL (40-60) Cholesterol/HDL Ratio 5.1 Review of Systems Review of Systems Admits to cough and shortness of air Denies chest pain Assessment and Plan Assessmemt and Plan Problems Medical Problems: (1) Essential hypertension Status: Acute (2) Tobacco use Status: Acute ASSESSMENT: Dizziness COPD Depression Hypertension Sciatica PLAN: Consult Cardio Continue cardiac monitoring Get serial EKGs Get serial cardiac enzymes PT/OT Continue current medications Problems: Comment Review of Relevant I have reviewed the following items giovanny (where applicable) has been applied. Labs Laboratory Tests Test 05/04/17 13:12 05/04/17 15:00 05/04/17 21:45 05/05/17 05:00 White Blood Count 9.3 x10^3/uL (4.0-11.0) 8.3 x10^3/uL (4.0-11.0) Red Blood Count 4.48 x10^6/uL (3.50-5.40) 4.10 x10^6/uL (3.50-5.40) Hemoglobin 14.3 g/dL (12.0-15.5) 13.1 g/dL (12.0-15.5) Hematocrit 43.3 % (36.0-47.0) 39.4 % (36.0-47.0) Mean Corpuscular Volume 97 fL (79-100) 96 fL (79-100) Mean Corpuscular Hemoglobin 32 pg (25-35) 32 pg (25-35) Mean Corpuscular Hemoglobin Concent 33 g/dL (31-37) 33 g/dL (31-37) Red Cell Distribution Width 13.1 % (11.5-14.5) 13.5 % (11.5-14.5) Platelet Count 229 x10^3/uL (140-400) 188 x10^3/uL (140-400) Neutrophils (%) (Auto) 69 % (31-73) 68 % (31-73) Lymphocytes (%) (Auto) 21 % (24-48) 20 % (24-48) Monocytes (%) (Auto) 5 % (0-9) 7 % (0-9) Eosinophils (%) (Auto) 4 % (0-3) 4 % (0-3) Basophils (%) (Auto) 1 % (0-3) 1 % (0-3) Neutrophils # (Auto) 6.5 x10^3uL (1.8-7.7) 5.7 x10^3uL (1.8-7.7) Lymphocytes # (Auto) 2.0 x10^3/uL (1.0-4.8) 1.7 x10^3/uL (1.0-4.8) Monocytes # (Auto) 0.5 x10^3/uL (0.0-1.1) 0.6 x10^3/uL (0.0-1.1) Eosinophils # (Auto) 0.3 x10^3/uL (0.0-0.7) 0.3 x10^3/uL (0.0-0.7) Basophils # (Auto) 0.1 x10^3/uL (0.0-0.2) 0.1 x10^3/uL (0.0-0.2) Sodium Level 137 mmol/L (136-145) 143 mmol/L (136-145) Potassium Level 3.5 mmol/L (3.5-5.1) 4.3 mmol/L (3.5-5.1) Chloride Level 103 mmol/L (98-107) 108 mmol/L (98-107) Carbon Dioxide Level 26 mmol/L (21-32) 29 mmol/L (21-32) Anion Gap 8 (6-14) 6 (6-14) Blood Urea Nitrogen 14 mg/dL (7-20) 13 mg/dL (7-20) Creatinine 0.8 mg/dL (0.6-1.0) 0.8 mg/dL (0.6-1.0) Estimated GFR (Cockcroft-Gault) 73.4 73.4 BUN/Creatinine Ratio 18 (6-20) Glucose Level 156 mg/dL (70-99) 103 mg/dL (70-99) Calcium Level 8.5 mg/dL (8.5-10.1) 8.6 mg/dL (8.5-10.1) Magnesium Level 2.0 mg/dL (1.8-2.4) Total Bilirubin 0.3 mg/dL (0.2-1.0) Aspartate Amino Transf (AST/SGOT) 16 U/L (15-37) Alanine Aminotransferase (ALT/SGPT) 19 U/L (14-59) Alkaline Phosphatase 69 U/L (46-116) Creatine Kinase 124 U/L (26-192) Creatine Kinase MB (Mass) 2.0 ng/mL (0.0-3.6) Creatine Kinase MB Relative Index 1.6 % (0-4) Troponin I Quantitative < 0.017 ng/mL (0.000-0.055) < 0.017 ng/mL (0.000-0.055) < 0.017 ng/mL (0.000-0.055) IG-Bok-P-Type Natriuretic Peptide 131 pg/mL (0-124) Total Protein 7.7 g/dL (6.4-8.2) Albumin 3.6 g/dL (3.4-5.0) Albumin/Globulin Ratio 0.9 (1.0-1.7) Urine Collection Type Unknown Urine Color Yellow Urine Clarity Cloudy Urine pH 6.0 Urine Specific [place] 1.015 Urine Protein Negative mg/dL (NEG-TRACE) Urine Glucose (UA) Negative mg/dL (NEG) Urine Ketones (Stick) Negative mg/dL (NEG) Urine Blood Negative (NEG) Urine Nitrite Negative (NEG) Urine Bilirubin Negative (NEG) Urine Urobilinogen Dipstick 1.0 mg/dL (0.2 mg/dL) Urine Leukocyte Esterase Negative (NEG) Urine RBC 0 /HPF (0-2) Urine WBC Occ /HPF (0-4) Urine Squamous Epithelial Cells Mod /LPF Urine Bacteria Moderate /HPF (0-FEW) Urine Mucus Slight /LPF Triglycerides Level 101 mg/dL (0-150) Cholesterol Level 198 mg/dL (0-200) LDL Cholesterol, Calculated 139 mg/dL (0-100) VLDL Cholesterol, Calculated 20 mg/dL (0-40) Non-HDL Cholesterol Calculated 159 mg/dL (0-129) HDL Cholesterol 39 mg/dL (40-60) Cholesterol/HDL Ratio 5.1 Laboratory Tests Test 05/04/17 15:00 05/04/17 21:45 05/05/17 05:00 Urine Collection Type Unknown Urine Color Yellow Urine Clarity Cloudy Urine pH 6.0 Urine Specific [place] 1.015 Urine Protein Negative mg/dL (NEG-TRACE) Urine Glucose (UA) Negative mg/dL (NEG) Urine Ketones (Stick) Negative mg/dL (NEG) Urine Blood Negative (NEG) Urine Nitrite Negative (NEG) Urine Bilirubin Negative (NEG) Urine Urobilinogen Dipstick 1.0 mg/dL (0.2 mg/dL) Urine Leukocyte Esterase Negative (NEG) Urine RBC 0 /HPF (0-2) Urine WBC Occ /HPF (0-4) Urine Squamous Epithelial Cells Mod /LPF Urine Bacteria Moderate /HPF (0-FEW) Urine Mucus Slight /LPF Troponin I Quantitative < 0.017 ng/mL (0.000-0.055) < 0.017 ng/mL (0.000-0.055) White Blood Count 8.3 x10^3/uL (4.0-11.0) Red Blood Count 4.10 x10^6/uL (3.50-5.40) Hemoglobin 13.1 g/dL (12.0-15.5) Hematocrit 39.4 % (36.0-47.0) Mean Corpuscular Volume 96 fL (79-100) Mean Corpuscular Hemoglobin 32 pg (25-35) Mean Corpuscular Hemoglobin Concent 33 g/dL (31-37) Red Cell Distribution Width 13.5 % (11.5-14.5) Platelet Count 188 x10^3/uL (140-400) Neutrophils (%) (Auto) 68 % (31-73) Lymphocytes (%) (Auto) 20 % (24-48) Monocytes (%) (Auto) 7 % (0-9) Eosinophils (%) (Auto) 4 % (0-3) Basophils (%) (Auto) 1 % (0-3) Neutrophils # (Auto) 5.7 x10^3uL (1.8-7.7) Lymphocytes # (Auto) 1.7 x10^3/uL (1.0-4.8) Monocytes # (Auto) 0.6 x10^3/uL (0.0-1.1) Eosinophils # (Auto) 0.3 x10^3/uL (0.0-0.7) Basophils # (Auto) 0.1 x10^3/uL (0.0-0.2) Sodium Level 143 mmol/L (136-145) Potassium Level 4.3 mmol/L (3.5-5.1) Chloride Level 108 mmol/L (98-107) Carbon Dioxide Level 29 mmol/L (21-32) Anion Gap 6 (6-14) Blood Urea Nitrogen 13 mg/dL (7-20) Creatinine 0.8 mg/dL (0.6-1.0) Estimated GFR (Cockcroft-Gault) 73.4 Glucose Level 103 mg/dL (70-99) Calcium Level 8.6 mg/dL (8.5-10.1) Triglycerides Level 101 mg/dL (0-150) Cholesterol Level 198 mg/dL (0-200) LDL Cholesterol, Calculated 139 mg/dL (0-100) VLDL Cholesterol, Calculated 20 mg/dL (0-40) Non-HDL Cholesterol Calculated 159 mg/dL (0-129) HDL Cholesterol 39 mg/dL (40-60) Cholesterol/HDL Ratio 5.1 Medications Current Medications Aspirin (Children'S Aspirin) 324 mg 1X ONCE PO Last administered on 15:08; Start 05/04/17 at 15:00; Stop 05/04/17 at 15:01; Status DC Sodium Chloride 1,000 ml @ 125 mls/hr Q8H IV Last administered on 05/04/17 15:07; Start 05/04/17 at 14:51; Stop 05/04/17 at 22:50; Status DC Ondansetron HCl (Zofran) 4 mg PRN Q8HRS PRN IV NAUSEA/VOMITING; Start at 16:00; Stop 05/05/17 at 15:59 Fentanyl Citrate (Fentanyl 2ml Vial) 50 mcg PRN Q2HR PRN IV PAIN; Start at 16:00; Stop 05/05/17 at 15:59 Sodium Chloride 1,000 ml @ 125 mls/hr Q8H IV ; Start 05/04/17 at 16:00; Stop 05/05/17 at 15:59 Acetaminophen (Tylenol) 650 mg PRN Q4HRS PRN PO FEVER; Start 05/04/17 at 16:00 ; Stop 05/05/17 at 15:59 Amlodipine Besylate (Norvasc) 10 mg DAILY PO ; Start 05/05/17 at 09:00 Bupropion HCl (Wellbutrin Sr) 150 mg BID PO Last administered on 05/04/17 21: 27; Start 05/04/17 at 21:00 Cyclobenzaprine HCl (Flexeril) 10 mg TID PO ; Start 05/04/17 at 21:00; Stop at 22:08; Status DC Docusate Sodium (Colace) 100 mg BID PO ; Start 05/04/17 at 21:00; Stop at 22:08; Status DC Gabapentin (Neurontin) 100 mg TID PO ; Start 05/04/17 at 21:00; Stop 05/04/17 at 22:08; Status DC Acetaminophen/ Hydrocodone Bitart (Lortab 5/325) 1 tab PRN Q4HRS PRN PO PAIN; Start 05/04/17 at 18:30 Sertraline HCl (Zoloft) 50 mg DAILY PO ; Start 05/05/17 at 09:00 Lisinopril (Prinivil) 20 mg DAILY PO ; Start 05/05/17 at 09:00 Albuterol/ Ipratropium (Duoneb) 3 ml RTQID NEB Last administered on 05/05/17 11:11; Start 05/04/17 at 20:00 Budesonide (Pulmicort) 0.5 mg RTBID NEB Last administered on 05/05/17 07:18; Start 05/04/17 at 20:00 Albuterol Sulfate (Ventolin Neb Soln) 2.5 mg Q4HRS PRN NEB DYSPNEA; Start at 18:30 Hydrochlorothiazide (Hydrodiuril) 25 mg DAILY PO ; Start 05/05/17 at 09:00 Aspirin (Ecotrin) 81 mg DAILYWBKFT PO ; Start 05/05/17 at 11:00 Atorvastatin Calcium (Lipitor) 20 mg QHS PO ; Start 05/05/17 at 21:00 Regadenoson (Lexiscan) 0.4 mg 1X ONCE IV Last administered on 05/05/17 12:44 ; Start 05/05/17 at 12:15; Stop 05/05/17 at 12:16; Status DC Active Scripts Active Lisinopril-Hctz 20-25 Mg Tab (Lisinopril/Hydrochlorothiazide) 1 Each Tablet 1 Tab PO DAILY Amlodipine Besylate 10 Mg Tablet 10 Mg PO DAILY Reported Sertraline Hcl 50 Mg Tablet DAILY Bupropion Hcl Sr (Bupropion Hcl) 150 Mg Tablet.er 30 Days Vitals/I & O Vital Sign - Last 24 Hours 05/04/17 05/04/17 05/04/17 05/04/17 13:48 14:06 14:36 15:27 Pulse 70 68 68 68 Resp 22 20 24 24 Pulse Ox 95 96 96 98 05/04/17 05/04/17 05/04/1727/17 15:46 16:16 16:46 17:16 Pulse 66 66 74 66 Resp 20 20 22 22 Pulse Ox 97 96 94 94 05/04/17 05/04/17 05/04/17 05/04/17 17:46 18:50 18:50 19:45 Temp 98.0 98.0 98.0 98.0 Pulse 68 82 82 Resp 22 19 19 B/P (MAP) 155/78 (103) 155/78 (103) Pulse Ox 94 97 97 97 O2 Delivery Room Air Room Air Room Air 05/04/17 05/05/17 05/05/17 05/05/17 23:00 03:25 07:00 07:20 Temp 98.5 98.1 98.2 98.5 98.1 98.2 Pulse 71 60 69 Resp 20 18 20 B/P (MAP) 138/45 (76) 125/51 (75) 151/74 (99) Pulse Ox 95 96 95 96 O2 Delivery Room Air BiPAP/CPAP BiPAP/CPAP Room Air 05/05/17 05/05/17 05/05/17 07:22 11:00 11:11 Temp 98.1 98.1 Pulse 72 Resp 20 B/P (MAP) 147/70 (95) Pulse Ox 96 96 96 O2 Delivery Room Air BiPAP/CPAP Room Air Intake and Output 05/04/17 05/04/17 05/05/17 14:59 22:59 06:59 Intake Total 300 ml Output Total 150 ml Balance 150 ml DONNY ROMEO III DO May 05, 2017 13:36
--- NOTE | 2017-05-05 14:31 | RAD ---
APPROVED REPORT Test Type: Pharmacological Stress Nurse/Tech: familia steen Test Indications: CHEST PAIN Cardiac History: HTN, SEE EHR Medications: SEE EHR Medical History: COPD, SMOKER, SEE EHR Resting ECG: SR Resting Heart Rate: 68 bpm Resting Blood Pressure: 161/82mmHg Pretest Chest Pain: No chest pain Nurse/Tech Notes NO RESPIRATORY DISTRESS NOTED, NO CHEST PAIN STATED. Consent: The procedure was explained to the patient in lay terms. Informed consent was witnessed. Kam eout was entered into [employer]. History and Stress Test performed by RT Darek Chadwick) (N) Pharm. Details Pharmacologic stress testing was performed using 0.4mg per 5ml of regadenoson given intravenously ove r 7-10 seconds. Stress Symptoms BODY FATIGUE, HEADACHE. POST EXERCISE Reason for Termination: Infusion complete Max HR: 96 bpm Max Blood Pressure: 161/82mmHg Chest Pain: No. Arrhythmia: No. ST Change: No. INTERPRETATION Stress EKG Conclusion: No evidence of stress induced EKG changes. Imaging Protocol IMAGE PROTOCOL: Stress Tc-99m/rest Tc-99m 2 days Rest: Stress: Viability: Radiopharm.Tc99m Sestamibi [id number] Duration 10min. Img Date 05/05/2017 Inj-Img [id number]. Stress Admin Site: IV - Right AntecubitalAdministrator: RT Farrukh (R)(N) STRESS DATA End Diast. Vol.167.0mlAv. Heart Rate67.0bpm End Syst. Vol.41.0mlCO Index BSA0.0L/min Myocardial Nkkn366.0gEject. Ghglwyvo00.0% Stress Rates Pk. Fill Rate3.21EDV/secLVtime Pk. Fill 207.95msec Pk. Empty Rate3.49ESV/secLVtime Pk. Zmybj181.94msec 06/10 Pk. Fill1.14EDV/sec Stress Scores Regional WT0.00Summed WT0.00 Regional WM0.00Summed WM0.00 LV Perfusion Normal perfusion at stress. Wall Motion Normal wall motion with an EF > 70%. LV Perf. Quant 17 Seg. SSS4.00 Stress Defect Extent (% LAD)0.00Rest Defect Extent (% LAD)Rev. Defect Extent (% LAD)0.00 Stress Defect Extent (% LCX) 8.80Rest Defect Extent (% LCX)Rev. Defect Extent (% LCX)0.00 Stress Defect Extent (% RCA)0.00Rest Defect Extent (% RCA)Rev. Defect Extent (% RCA)0.00 Stress Defect Extent (% AYO)2.60Rest Defect Extent (% AYO)Rev. Defect Extent (% AYO)0.00 Other Information Quality:Fair Risk Assessment: Low Risk Conclusion 1. No evidence of stress induced EKG changes. 2. Mild subdiaphragmatic attenuation artifact noted. 3. Normal perfusion at stress. 4. Normal EF at > 70% 5. Low risk study.
--- NOTE | 2017-05-05 15:33 | CARD ---
APPROVED REPORT EXAM: Two-dimensional and M-mode echocardiogram with Doppler and color Doppler. Other Information Quality : Good Technically limited study due to body habitus. INDICATION Dizziness and Vertigo Presyncope 2D DIMENSIONS RVDd2.7 (2.9-3.5cm)Left Atrium(2D)4.8 (1.6-4.0cm) IVSd1.2 (0.7-1.1cm)Aortic Root(2D)3.0 (2.0-3.7cm) LVDd5.3 (3.9-5.9cm)LVOT Diameter2.1 (1.8-2.4cm) PWd1.0 (0.7-1.1cm)LVDs3.5 (2.5-4.0cm) FS (%) 30.0 %SV81.1 ml LVEF(%)60.0 (>50%) Aortic Valve AoV Peak Cecilio.166.2cm/sAoV VTI42.0cm AO Peak GR.11.1mmHgLVOT Peak Cecilio.157.9cm/s LVOT VTI 36.90cmAO Mean GR.7mmHg MARELY (VMAX)3.06mj8LNX (VTI)3.12cm2 Mitral Valve MV E Zybkemcx985.8cm/sMV DECEL [id number] MV A Wdmtsbvc923.5cm/sMV [id number] E/A Ratio1.3MVA (PHT)3.76cm2 TDI E/Lateral E'17.6E/Medial E'22.6 Pulmonary Vein S1 Esabjmuy76.0cm/sD2 Qagayziv56.3cm/s LEFT VENTRICLE The left ventricle is normal size. There is mild concentric left ventricular hypertrophy. The left ve ntricular systolic function is normal and the ejection fraction is within normal range. The Ejection Fraction is 55-60%. There is normal LV segmental wall motion. Transmitral Doppler flow pattern is Gra de I-abnormal relaxation pattern. RIGHT VENTRICLE The right ventricle is normal size. The right ventricular systolic function is normal. ATRIA The left atrium is mildly dilated. The right atrium size is normal. The interatrial septum is intact with no evidence for an atrial septal defect or patent foramen ovale as noted on 2-D or Doppler imagi ng. AORTIC VALVE The aortic valve is grossly normal in structure and function. Doppler and Color Flow revealed no sign ificant aortic regurgitation. There is no significant aortic valvular stenosis. MITRAL VALVE The mitral valve is normal in structure and function. There is no evidence of mitral valve prolapse. There is no mitral valve stenosis. Doppler and Color-flow revealed trace mitral regurgitation. TRICUSPID VALVE The tricuspid valve is grossly normal in structure and function. Doppler and Color Flow revealed no t ricuspid valve regurgitation noted. There is no tricuspid valve stenosis. PULMONIC VALVE Doppler and Color Flow revealed no pulmonic valvular regurgitation. There is no pulmonic valvular rashawn nosis. GREAT VESSELS The aortic root is normal in size. The ascending aorta is normal in size. The IVC is normal in size a nd collapses >50% with inspiration. PERICARDIAL EFFUSION There is no evidence of significant pericardial effusion. Critical Notification Critical Value: No <Conclusion> The left ventricular systolic function is normal and the ejection fraction is within normal range. Th e Ejection Fraction is 55-60%. There is normal LV segmental wall motion. Technically difficult study.
[2017-05-05] MEDS: hydroCHLOROthiazide 25 MG TABLET PO SCH (15:53)
[2017-05-05] MEDS: buPROPion SR 150 MG TABLET.SA PO SCH ×2 (15:53→20:34)
[2017-05-05] MEDS: amLODIPine BESYLATE 10 MG TABLET PO SCH (15:53)
[2017-05-05] MEDS: ASPIRIN ENTERIC COATED 81 MG TABLET.DR. PO SCH (15:54)
[2017-05-05] MEDS: LISINOPRIL 20 MG TABLET PO SCH (15:54)
[2017-05-05] MEDS: SERTRALINE 50 MG TABLET. PO SCH (15:55)
[2017-05-05 19:00] VITALS: BP 183/96
[2017-05-05] MEDS ORDERED: hydrALAZINE 20 MG/ML VIAL. IVP PRN (20:30)
[2017-05-05] MEDS ORDERED: ATORVASTATIN CALCIUM 20 MG TABLET PO SCH (21:00)
[2017-05-05 22:50] VITALS: BP 172/86
[2017-05-06 00:11] VITALS: BP 150/70
[2017-05-06 03:15] VITALS: BP 124/52
[2017-05-06 06:06] LABS: BASO # 0.1 x10^3/uL (0.0-0.2); BASO % 1 % (0-3); EOS % 4 % (0-3); HEMATOCRIT 38.7 % (36.0-47.0); LYMPH # 1.8 x10^3/uL (1.0-4.8); LYMPH % 24 % (24-48); MEAN CORPUSCULAR HEMOGLOBIN 32 pg (25-35); MEAN CORPUSCULAR HGB CONC 34 g/dL (31-37); MEAN CORPUSCULAR VOLUME 96 fL (79-100); MONO % 7 % (0-9); NEUT % 65 % (31-73); PLATELET COUNT 193 x10^3/uL (140-400); RED BLOOD COUNT 4.05 x10^6/uL (3.50-5.40); RED CELL DISTRIBUTION WIDTH 13.2 % (11.5-14.5); WHITE BLOOD COUNT 7.7 x10^3/uL (4.0-11.0)
[2017-05-06 06:37] LABS: CALCIUM 8.9 mg/dL (8.5-10.1); CREATININE 0.9 mg/dL (0.6-1.0); GFR 64.1; POTASSIUM 3.5 mmol/L (3.5-5.1)
[2017-05-06] MEDS: IPRATRPIUM/ALBUTEROL 0.5/2.5MG 3 ML NEBU. NEB SCH ×3 (07:45→16:15)
[2017-05-06] MEDS: BUDESONIDE 0.5 MG/2 ML NEBU. NEB SCH (07:45)
[2017-05-06 07:50] VITALS: BP 130/71
[2017-05-06] MEDS: buPROPion SR 150 MG TABLET.SA PO SCH (08:41)
[2017-05-06] MEDS: ASPIRIN ENTERIC COATED 81 MG TABLET.DR. PO SCH (08:42)
[2017-05-06] MEDS: hydroCHLOROthiazide 25 MG TABLET PO SCH (08:42)
[2017-05-06] MEDS: amLODIPine BESYLATE 10 MG TABLET PO SCH (08:42)
[2017-05-06] MEDS: LISINOPRIL 20 MG TABLET PO SCH (08:43)
[2017-05-06] MEDS: SERTRALINE 50 MG TABLET. PO SCH (08:43)
[2017-05-06 10:55] VITALS: BP 102/42
[2017-05-06 14:50] VITALS: BP 110/48
[2017-05-06] MEDS ORDERED: LOVA20TA2 PO (16:16)
[2017-05-06] MEDS ORDERED: ASPI-612 PO (16:16)
[2017-05-06] MEDS ORDERED: LISI-334 PO (16:16)
--- NOTE | 2017-05-07 18:57 | DS ---
DATE OF DISCHARGE: 05/06/2017 CHIEF COMPLAINT: Dizziness, jaw pain. HOSPITAL COURSE: The patient is a 61-year-old morbidly obese woman who presented with above symptoms. Because of risk factors, she was ruled out for ACS by serial enzymes. Cardiology was consulted as well and an echocardiogram was obtained not revealing any significant abnormality. She further underwent myocardial perfusion imaging as well as carotid ultrasound, both of which did not reveal any significant stenosis. The patient was therefore deemed safe for discharge to home. Dizziness attributed possibly to vestibular dysfunction. PHYSICAL EXAMINATION: VITAL SIGNS: Show a blood pressure of 110/48, heart rate of 72, respiratory rate at 18, no fevers. LUNGS: Clear. HEART: Regular rate and rhythm. ABDOMEN: Positive bowel sounds. EXTREMITIES: No edema. DISCHARGE DIAGNOSIS: Dizziness, question vestibular dysfunction. DISCHARGE DISPOSITION: To home. DISCHARGE CONDITION: Improved. DISCHARGE MEDICATIONS: Please refer to MAR. DISCHARGE INSTRUCTIONS: The patient will follow up with PCP in 2-4 weeks. RAFAELA ROSALES MD DR: UR/nts JOB#: [id number] / [id number] RAMÓN Isaacs MD MTDD
== END 2017-05-06 17:29 | disposition home or self-care (01) | DRG 149 ==
LOC: ER 13:26 → ED HOLD 15:04 → 2 NORTH 18:30
PROVIDERS: ADMIT Internal Medicine; ATTEND Internal Medicine
PROC: 5A09357 Assistance with Respiratory Ventilation, Less than 24 Consecutive Hours, Continuous Positive Airway Pressure (ICD-10-PCS; principal; 2017-05-05)
PROC: 5A09357 Assistance with Respiratory Ventilation, Less than 24 Consecutive Hours, Continuous Positive Airway Pressure (ICD-10-PCS; 2017-05-06)
DX: H81.90 Unspecified disorder of vestibular function, unspecified ear (principal); I24.9 Acute ischemic heart disease, unspecified; E66.01 Morbid (severe) obesity due to excess calories; Z68.43 Body mass index [BMI] 50.0-59.9, adult; R07.9 Chest pain, unspecified; E78.5 Hyperlipidemia, unspecified; F32.9 Major depressive disorder, single episode, unspecified; F17.210 Nicotine dependence, cigarettes, uncomplicated; F41.9 Anxiety disorder, unspecified; G47.33 Obstructive sleep apnea (adult) (pediatric); G89.29 Other chronic pain; I10 Essential (primary) hypertension; I49.3 Ventricular premature depolarization; J44.9 Chronic obstructive pulmonary disease, unspecified; M54.40 Lumbago with sciatica, unspecified side; Z82.49 Family history of ischemic heart disease and other diseases of the circulatory system; Z90.710 Acquired absence of both cervix and uterus
CPT/HCPCS: 36415; 70450; 71010; 78452; 80048; 80053; 80061; 81001; 82553; 83735; 83880; 84443; 84484; 85025; 87086; 93005; 93017; 93306; 93880; 94250; 94640; 94760; 96360; 96374; 96375; A9500; J0360; J2785; J7030; J7620; J7626; 99285-25